=== PATIENT | female | born 1960 | race African-American/Black ===

== ENCOUNTER 2017-07-21 09:50 | Inpatient (IN) | payer OTHER, MEDICAID ==
[~2017-07-21] VITALS: Ht 167.6 cm; Wt 93.9 kg
[2017-07-21] MEDS ORDERED: FLUT1DIS2 IH (10:03)
[2017-07-21] MEDS ORDERED: BENA40TA3 PO (10:03)
[2017-07-21] MEDS ORDERED: IBUP-2030 PO (10:03)
[2017-07-21] MEDS ORDERED: TYLENOL #3 (10:03)
[2017-07-21] MEDS ORDERED: PROSOL IH (10:03)
[2017-07-21] MEDS ORDERED: IPRATROPIUM BROMIDE (0.02%) 0.5MG/2.5ML NEB HHN STA (10:27)
[2017-07-21] MEDS ORDERED: ALBUTEROL (0.083%) 2.5MG/3ML NEB HHN STA (10:27)
[2017-07-21] MEDS ORDERED: METHYLPREDNISOLONE SOD SUCC 125 MG/2 ML VIAL IV STA (10:27)
[2017-07-21] MEDS ORDERED: CEFTRIAXONE 2 G PREMIX 50 ML IV ONE (10:30)
[2017-07-21] MEDS ORDERED: AZITHROMYCIN 500 MG in DEXT 5% WATER 250 ML IV SCH (10:30)
[2017-07-21 10:49] LABS: BASOPHILS % 1.6 % (0.0-2.0); EOSINOPHILS % 3.4 % (0.0-5.0); HEMATOCRIT. 44.8 % (36.0-48.0); HEMOGLOBIN. 15.2 g/dL (12.0-16.0); LYMPHOCYTES % 24.2 % (20.0-50.0); MEAN CORPUSCULAR HEMOGLOBIN 35.7 pg (28.0-32.0); MEAN CORPUSCULAR VOLUME 105.5 fL (81.0-99.0); MEAN PLATELET VOLUME 8.3 fl (7.4-10.4); MONOCYTES % 12.3 % (2.0-8.0); NEUTROPHILS % 58.5 % (40.0-76.0); PLATELET 151 x1000/uL (130-400); RED BLOOD CELL COUNT 4.25 mill/uL (4.2-5.4); RED CELL DISTRIBUTION WIDTH 12.4 % (11.6-14.6)
[2017-07-21 11:06] LABS: CARBON DIOXIDE 30 mEq/L (21-32); CHLORIDE 106 mEq/L (98-107); TROPONIN I < 0.02 ng/mL (0.00-0.04)
[2017-07-21] MEDS ORDERED: TRAMADOL 50MG TABLET PO PRN (14:45)
[2017-07-21] MEDS ORDERED: DIPHENHYDRAMINE 50MG/ML VIAL IV PRN (14:45)
[2017-07-21] MEDS ORDERED: GUAIFENESIN 200MG/10ML SUGAR FREE UDC PO PRN (14:45)
[2017-07-21] MEDS ORDERED: ACETAMINOPHEN 325MG TABLET PO PRN (14:45)
[2017-07-21] MEDS ORDERED: MAGNESIUM/ALUMINUM HYDROXIDE/SIMETHICONE 30ML UDC PO PRN (14:45)
[2017-07-21] MEDS ORDERED: NA PHOS,M-B/NA PHOS,DI-BA ENEMA 118ML PR PRN (14:45)
[2017-07-21] MEDS ORDERED: LORAZEPAM 2MG/ML CPJ IV PRN (14:45)
[2017-07-21] MEDS ORDERED: CLONIDINE 0.1MG TABLET PO PRN (14:45)
[2017-07-21] MEDS ORDERED: DOCUSATE SODIUM 100MG CAPSULE PO PRN (14:45)
[2017-07-21] MEDS ORDERED: IPRATROPIUM/ALBUTEROL 0.5-3(2.5)MG/3ML NEB INH PRN (14:45)
[2017-07-21] MEDS ORDERED: ONDANSETRON HCL 4MG/2ML VIAL IV PRN (14:45)
[2017-07-21 15:10] VITALS: BP 169/77
[2017-07-21 15:11] VITALS: BP 169/77
[2017-07-21] MEDS ORDERED: LEVOFLOXACIN 500MG PREMIX 100 ML IV SCH (16:00)
[2017-07-21 18:07] LABS: FOLIC ACID (FOLATE) SERUM 15.6 ng/mL (>5.38)
[2017-07-21] MEDS: BENAZEPRIL 20MG TABLET PO SCH (18:23)
[2017-07-21] MEDS: GUAIFENESIN/DM 600MG/30MG ER TAB 12HR PO SCH (18:23)
[2017-07-21] MEDS: ENOXAPARIN 30MG/0.3ML SYR SUBCUT SCH (18:23)
[2017-07-21] MEDS: IPRATROPIUM/ALBUTEROL 0.5-3(2.5)MG/3ML NEB HHN SCH (19:30)
[2017-07-21 20:00] VITALS: BP 173/69
[2017-07-21] MEDS ORDERED: ZOLPIDEM TARTRATE 5MG TABLET PO PRN (21:00)
[2017-07-21 21:21] LABS: *AMPHETAMINES SCREEN URINE NEGATIVE (NEGATIVE); *BARBITURATES SCREEN URINE NEGATIVE (NEGATIVE); *BENZODIAZEPINES SCREEN URINE NEGATIVE (NEGATIVE); *COCAINE SCREEN URINE NEGATIVE (NEGATIVE); CANNABINOID URINE SCREEN NEGATIVE (NEGATIVE); METHADONE URINE SCREEN NEGATIVE (NEGATIVE); OPIATES URINE SCREEN NEGATIVE (NEGATIVE); PHENCYCLIDINE URINE SCREEN NEGATIVE (NEGATIVE)
[2017-07-21] MEDS: FAMOTIDINE 20MG/2ML VIAL IV SCH (21:34)
[2017-07-21] MEDS: METHYLPREDNISOLONE SOD SUCC 125 MG/2 ML VIAL IV SCH (22:00)
[2017-07-21] MEDS: NICOTINE 14MG PATCH TD SCH (23:49)
[2017-07-22] VITALS: BP 161/85
[2017-07-22] MEDS: IPRATROPIUM/ALBUTEROL 0.5-3(2.5)MG/3ML NEB HHN SCH ×5 (00:44→19:55)
[2017-07-22] MEDS: GUAIFENESIN/DM 600MG/30MG ER TAB 12HR PO SCH ×2 (03:05→13:45)
[2017-07-22 04:00] VITALS: BP 152/73
[2017-07-22] MEDS: ENOXAPARIN 30MG/0.3ML SYR SUBCUT SCH ×2 (05:10→15:40)
[2017-07-22] MEDS: METHYLPREDNISOLONE SOD SUCC 125 MG/2 ML VIAL IV SCH ×3 (06:21→21:45)
[2017-07-22 07:45] LABS: CREATINE KINASE 116 IU/L (26-192); CREATINE KINASE MB FRACTION 2.3 ng/mL (0.5-3.6); TROPONIN I < 0.02 ng/mL (0.00-0.04)
[2017-07-22 08:00] VITALS: BP 167/71
[2017-07-22] MEDS: FAMOTIDINE 20MG/2ML VIAL IV SCH ×2 (09:00→21:46)
[2017-07-22] MEDS: ASPIRIN 325MG EC TABLET PO SCH (09:00)
[2017-07-22] MEDS: BENAZEPRIL 20MG TABLET PO SCH (09:01)
[2017-07-22] MEDS: NICOTINE 14MG PATCH TD SCH (10:54)
[2017-07-22 12:12] VITALS: BP 180/93
[2017-07-22] MEDS ORDERED: LEVOFLOXACIN 500MG PREMIX 100 ML IV SCH (16:00)
[2017-07-22 16:18] VITALS: BP 159/74
[2017-07-22 17:55] LABS: CREATINE KINASE 142 IU/L (26-192); CREATINE KINASE MB FRACTION 2.2 ng/mL (0.5-3.6); TROPONIN I < 0.02 ng/mL (0.00-0.04)
[2017-07-22 20:00] VITALS: BP 153/80
[2017-07-23] VITALS: BP 159/78
[2017-07-23] MEDS: IPRATROPIUM/ALBUTEROL 0.5-3(2.5)MG/3ML NEB HHN SCH ×4 (00:58→11:53)
[2017-07-23] MEDS: ENOXAPARIN 30MG/0.3ML SYR SUBCUT SCH (03:36)
[2017-07-23] MEDS: GUAIFENESIN/DM 600MG/30MG ER TAB 12HR PO SCH (03:36)
[2017-07-23 04:00] VITALS: BP 173/85
[2017-07-23] MEDS: METHYLPREDNISOLONE SOD SUCC 125 MG/2 ML VIAL IV SCH (06:00)
[2017-07-23 08:00] VITALS: BP 168/75
[2017-07-23] MEDS: FAMOTIDINE 20MG/2ML VIAL IV SCH (08:58)
[2017-07-23] MEDS: ASPIRIN 325MG EC TABLET PO SCH (08:58)
[2017-07-23] MEDS: BENAZEPRIL 20MG TABLET PO SCH (08:59)
[2017-07-23] MEDS: NICOTINE 14MG PATCH TD SCH (09:01)
[2017-07-23 12:00] VITALS: BP 167/77
[2017-07-23 13:30] VITALS: BP 167/77
== END 2017-07-23 13:33 | disposition home or self-care (01) | DRG 191 ==
LOC: ER 12:27 → 5WST 14:01 → ENRESERV 14:01 → SUPCPDRO 14:31
PROVIDERS: ADMIT Internal Medicine; ATTEND Internal Medicine
DX: J44.1 Chronic obstructive pulmonary disease with (acute) exacerbation (principal); J98.11 Atelectasis; I10 Essential (primary) hypertension; R07.81 Pleurodynia; R07.89 Other chest pain; F17.210 Nicotine dependence, cigarettes, uncomplicated; N95.1 Menopausal and female climacteric states; M19.90 Unspecified osteoarthritis, unspecified site; Z79.51 Long term (current) use of inhaled steroids; Z79.899 Other long term (current) drug therapy
CPT/HCPCS: 36415; 71010; 80053; 80061; 80305; 82550; 82553; 82607; 82746; 83036; 83605; 83690; 83880; 84484; 85025; 87040; 93005; 93970; 94640; 96361; 96365; 96366; 96375; 99285; J0456; J0696; J1650; J1956; J2930; J3490; J7050; J7060; J7611; J7620

== ENCOUNTER 2017-07-24 01:39 | Inpatient (IN) | payer OTHER, MEDICAID ==
[2017-07-24] VITALS (9 sets, daily range): BP systolic 102–143; BP diastolic 57–72
[~2017-07-24] VITALS: Ht 167.6 cm; Wt 101.6 kg
[~2017-07-24 01:39] MED LIST: BENA40TA3 PO; FLUT1DIS2 IH; IBUP-2030 PO; PROSOL IH; TYLENOL #3
[2017-07-24] MEDS ORDERED: LEVOFLOXACIN 750MG PREMIX 150 ML IV STA (01:43)
[2017-07-24] MEDS ORDERED: IPRATROPIUM BROMIDE (0.02%) 0.5MG/2.5ML NEB HHN STA (01:43)
[2017-07-24] MEDS ORDERED: ALBUTEROL (0.083%) 2.5MG/3ML NEB HHN STA (01:43)
[2017-07-24] MEDS ORDERED: ASPIRIN 81MG TABLET PO ONE (01:45)
[2017-07-24] MEDS ORDERED: NITROGLYCERIN OINT 1GM/INCH UDPKT TD ONE (01:45)
[2017-07-24] MEDS ORDERED: MAGNESIUM 2 G PREMIX 50 ML IV ONE (01:45)
[2017-07-24 02:18] LABS: BASOPHILS % 0.3 % (0.0-2.0); HEMATOCRIT. 46.4 % (36.0-48.0); HEMOGLOBIN. 15.6 g/dL (12.0-16.0); LYMPHOCYTES % 20.4 % (20.0-50.0); MEAN CORPUSCULAR VOLUME 106.8 fL (81.0-99.0); MEAN PLATELET VOLUME 8.5 fl (7.4-10.4); MONOCYTES % 8.4 % (2.0-8.0); NEUTROPHILS % 70.9 % (40.0-76.0); PLATELET 168 x1000/uL (130-400); RED BLOOD CELL COUNT 4.35 mill/uL (4.2-5.4); RED CELL DISTRIBUTION WIDTH 12.6 % (11.6-14.6)
[2017-07-24 02:25] LABS: D-DIMER 0.38 mg/L FEU (<0.50); INR 1.1; PARTIAL THROMBOPLASTIN TIME 22.9 sec (23.4-31.0); PROTHROMBIN TIME 11.2 sec (9.4-11.6)
[2017-07-24 02:37] LABS: BG BASE EXCESS 0.3 mmol/L (-2.0-2.0); BG BILEVEL POS AIRWAY PRESSURE 15/5; BG CARBOXYHEMOGLOBIN 0.6 % (0.5-1.5); BG DEOXYHEMOGLOBIN 1.3 % (0.0-5.0); BG FRACTION INSPIRED OXYGEN 40; BG HCO3 ACT 27.3 mmol/L (22.0-26.0); BG METHEMOGLOBIN 0.3 % (0.0-1.5); BG OXYGEN SATURATION 98.7 % (92.0-98.5); BG OXYHEMOGLOBIN 97.8 % (94.0-97.0); BG PCO2 53.1 mmHg (35.0-45.0); BG PH 7.329 (7.350-7.450); BG PO2 148.1 mmHg (75.0-100.0); BG SAMPLE SITE RIGHT BRACHIAL; BG VENT MODE MASK - BIPAP
[2017-07-24 02:38] LABS: CARBON DIOXIDE 28 mEq/L (21-32); CHLORIDE 104 mEq/L (98-107); ETHANOL BLOOD < 10 mg/dL; TROPONIN I 0.08 ng/mL (0.00-0.04)
[2017-07-24] MEDS ORDERED: MORPHINE SULFATE 2 MG/ML CPJ (NOT FOR IM USE) IV PRN (09:45)
[2017-07-24] MEDS ORDERED: IPRATROPIUM/ALBUTEROL 0.5-3(2.5)MG/3ML NEB HHN PRN ×2 (09:45→10:15)
[2017-07-24] MEDS: METHYLPREDNISOLONE SOD SUCC 40 MG/ML VIAL IV SCH ×2 (12:23→17:38)
[2017-07-24] MEDS: IPRATROPIUM/ALBUTEROL 0.5-3(2.5)MG/3ML NEB HHN SCH ×3 (14:00→20:43)
[2017-07-25] VITALS (12 sets, daily range): BP systolic 113–177; BP diastolic 50–129
[2017-07-25] MEDS: IPRATROPIUM/ALBUTEROL 0.5-3(2.5)MG/3ML NEB HHN SCH ×6 (01:09→21:22)
[2017-07-25] MEDS: METHYLPREDNISOLONE SOD SUCC 40 MG/ML VIAL IV SCH ×3 (01:13→17:11)
[2017-07-25] MEDS: LEVOFLOXACIN 500MG PREMIX 100 ML IV SCH (02:39)
[2017-07-25] MEDS ORDERED: ACETAMINOPHEN 325MG TABLET PO PRN (13:15)
[2017-07-25] MEDS ORDERED: CLONIDINE 0.1MG TABLET PO PRN (13:30)
[2017-07-25] MEDS: AMLODIPINE 10MG TABLET PO SCH ×2 (13:30→14:23)
[2017-07-25] MEDS ORDERED: GUAIFENESIN/CODEINE 100-10MG/5ML UDC PO PRN (13:45)
[2017-07-25] MEDS: NICOTINE 14MG PATCH TD SCH (14:22)
[2017-07-25] MEDS: ASPIRIN 81MG TABLET PO SCH (14:23)
[2017-07-25] MEDS: MULTIVITAMINS,THER W-MINERALS TABLET PO SCH (16:08)
[2017-07-25] MEDS: THIAMINE HCL 100MG TABLET PO SCH (16:08)
[2017-07-25] MEDS: FOLIC ACID 1MG TABLET PO SCH (16:08)
[2017-07-25] MEDS: GUAIFENESIN 600MG ER TABLET PO SCH (20:46)
[2017-07-25] MEDS: BUDESONIDE 0.5MG/2ML NEB HHN SCH (21:21)
[2017-07-26] VITALS: BP 147/83
[2017-07-26 00:24] LABS: CREATINE KINASE MB FRACTION 1.7 ng/mL (0.5-3.6); TROPONIN I 0.3 ng/mL (0.00-0.04)
[2017-07-26] MEDS: IPRATROPIUM/ALBUTEROL 0.5-3(2.5)MG/3ML NEB HHN SCH ×6 (01:12→20:09)
[2017-07-26 02:00] VITALS: BP 153/86
[2017-07-26] MEDS: LEVOFLOXACIN 500MG PREMIX 100 ML IV SCH (02:21)
[2017-07-26] MEDS: METHYLPREDNISOLONE SOD SUCC 40 MG/ML VIAL IV SCH ×2 (02:21→09:00)
[2017-07-26 06:26] LABS: HEMATOCRIT 41.6 % (36.0-48.0); HEMOGLOBIN 13.8 g/dL (12.0-16.0); MEAN CORPUSCULAR HEMOGLOBIN 35.1 pg (28.0-32.0); MEAN CORPUSCULAR VOLUME 105.8 fL (81.0-99.0); PLATELET 183 x1000/uL (130-400); RED BLOOD CELL COUNT 3.93 mill/uL (4.2-5.4); RED CELL DISTRIBUTION WIDTH 11.9 % (11.6-14.6)
[2017-07-26 07:03] LABS: CARBON DIOXIDE 29 mEq/L (21-32); CHLORIDE 102 mEq/L (98-107); CREATINE KINASE 41 IU/L (26-192); CREATINE KINASE MB FRACTION 1.8 ng/mL (0.5-3.6); TROPONIN I 0.22 ng/mL (0.00-0.04)
[2017-07-26 08:00] VITALS: BP 150/85
[2017-07-26] MEDS: MULTIVITAMINS,THER W-MINERALS TABLET PO SCH (09:00)
[2017-07-26] MEDS: AMLODIPINE 10MG TABLET PO SCH (09:00)
[2017-07-26] MEDS: THIAMINE HCL 100MG TABLET PO SCH (09:00)
[2017-07-26] MEDS: FOLIC ACID 1MG TABLET PO SCH (09:00)
[2017-07-26] MEDS ORDERED: PNEUMOCOCCAL 23-VAL P-SAC VAC 0.5 ML IM ONE (09:00)
[2017-07-26] MEDS: ASPIRIN 81MG TABLET PO SCH (09:01)
[2017-07-26] MEDS: GUAIFENESIN 600MG ER TABLET PO SCH ×2 (09:01→21:12)
[2017-07-26] MEDS: NICOTINE 14MG PATCH TD SCH (09:02)
[2017-07-26] MEDS ORDERED: DOBUTAMINE 250MG PREMIX 250 ML IV ONE ×2 (09:15→11:42)
[2017-07-26] MEDS: BUDESONIDE 0.5MG/2ML NEB HHN SCH ×2 (09:45→20:09)
[2017-07-26 09:47] VITALS: BP 155/80
[2017-07-26] MEDS ORDERED: MORPHINE SULFATE 4 MG/ML CPJ (NOT FOR IM USE) IV PRN (15:30)
[2017-07-26 15:53] LABS: CREATINE KINASE MB FRACTION 1.7 ng/mL (0.5-3.6); TROPONIN I 0.18 ng/mL (0.00-0.04)
[2017-07-26 16:00] VITALS: BP 153/69
[2017-07-26] MEDS: PREDNISONE 20MG TABLET PO SCH (17:49)
[2017-07-26 20:00] VITALS: BP 153/78
[2017-07-27] VITALS: BP 161/68
[2017-07-27] MEDS: IPRATROPIUM/ALBUTEROL 0.5-3(2.5)MG/3ML NEB HHN SCH ×3 (00:11→09:39)
[2017-07-27] MEDS: LEVOFLOXACIN 500MG PREMIX 100 ML IV SCH (03:10)
[2017-07-27 04:00] VITALS: BP 145/73
[2017-07-27 08:00] VITALS: BP 138/81
[2017-07-27] MEDS: NICOTINE 14MG PATCH TD SCH (08:43)
[2017-07-27] MEDS: FOLIC ACID 1MG TABLET PO SCH (08:44)
[2017-07-27] MEDS: GUAIFENESIN 600MG ER TABLET PO SCH (08:44)
[2017-07-27] MEDS: THIAMINE HCL 100MG TABLET PO SCH (08:44)
[2017-07-27] MEDS: MULTIVITAMINS,THER W-MINERALS TABLET PO SCH (08:44)
[2017-07-27] MEDS: ASPIRIN 81MG TABLET PO SCH (08:44)
[2017-07-27] MEDS: AMLODIPINE 10MG TABLET PO SCH (08:44)
[2017-07-27] MEDS: PREDNISONE 20MG TABLET PO SCH (08:44)
[2017-07-27] MEDS: BUDESONIDE 0.5MG/2ML NEB HHN SCH (09:39)
[2017-07-27 12:00] VITALS: BP 150/71
[2017-07-27 13:17] VITALS: BP 150/71
[2017-07-28] MEDS ORDERED: LEVOFLOXACIN 500MG TABLET PO SCH (11:00)
== END 2017-07-27 14:00 | disposition home or self-care (01) | DRG 189 ==
LOC: ER 01:39 → 5EST 04:37 → ENRESERV 06:59 → 5EST 10:00 → UNDOADMIN 10:00 → 5EST 10:14
PROVIDERS: ADMIT Internal Medicine; ATTEND Internal Medicine
DX: J96.00 Acute respiratory failure, unspecified whether with hypoxia or hypercapnia (principal); J44.0 Chronic obstructive pulmonary disease with (acute) lower respiratory infection; I24.9 Acute ischemic heart disease, unspecified; J44.1 Chronic obstructive pulmonary disease with (acute) exacerbation; J20.9 Acute bronchitis, unspecified; F10.10 Alcohol abuse, uncomplicated; F17.210 Nicotine dependence, cigarettes, uncomplicated; H40.9 Unspecified glaucoma; I10 Essential (primary) hypertension; K59.00 Constipation, unspecified; K64.9 Unspecified hemorrhoids; M19.90 Unspecified osteoarthritis, unspecified site; J32.9 Chronic sinusitis, unspecified
CPT/HCPCS: 36415; 36600; 71010; 78452; 80048; 80053; 82375; 82550; 82553; 82805; 83605; 83880; 84484; 85025; 85027; 85379; 85610; 85730; 87040; 87070; 93005; 93017; 93306; 94640; 94660; 94664; 96365; 96366; 99285; A9500; G0482; J1250; J1956; J2920; J3475; J7050; J7512; J7611; J7620; J7626

== ENCOUNTER 2019-03-05 17:58 | Emergency (ER) | payer OTHER, MEDICAID ==
[~2019-03-05] VITALS: Ht 162.6 cm; Wt 82.0 kg
[~2019-03-05 17:58] MED LIST changes: -BENA40TA3 PO; +BENA40TA9 PO; -TYLENOL #3
[2019-03-05] MEDS ORDERED: ONDANSETRON HCL 4MG/2ML INJ IV STA (19:08)
[2019-03-05] MEDS ORDERED: ALBUTEROL (0.083%) 2.5MG/3ML NEB HHN STA (19:08)
[2019-03-05] MEDS ORDERED: SODIUM CHLORIDE 0.9% 1,000 ML IV ONE (19:08)
[2019-03-05] MEDS ORDERED: KETOROLAC 30MG/ML VIAL IV STA (19:08)
[2019-03-05] MEDS ORDERED: IPRATROPIUM BROMIDE (0.02%) 0.5MG/2.5ML NEB HHN STA (19:08)
[2019-03-05 19:33] LABS: BASOPHILS % 1.1 % (0.0-2.0); EOSINOPHILS % 0.9 % (0.0-5.0); HEMATOCRIT. 38.7 % (36.0-48.0); HEMOGLOBIN. 12.9 g/dL (12.0-16.0); LYMPHOCYTES % 29.6 % (20.0-50.0); MEAN CORPUSCULAR HEMOGLOBIN 36.3 pg (28.0-32.0); MEAN CORPUSCULAR VOLUME 109.1 fL (81.0-99.0); MEAN PLATELET VOLUME 8.1 fl (7.4-10.4); MONOCYTES % 7.3 % (2.0-8.0); NEUTROPHILS % 61.1 % (40.0-76.0); PLATELET 174 x1000/uL (130-400); RED BLOOD CELL COUNT 3.54 mill/uL (4.2-5.4); RED CELL DISTRIBUTION WIDTH 12.3 % (11.6-14.6)
[2019-03-05 19:40] LABS: CHLORIDE 95 mEq/L (98-107)
[2019-03-05 22:06] VITALS: BP 105/35
== END 2019-03-05 22:48 | disposition home or self-care (01) ==
LOC: ER 17:58
DX: J44.1 Chronic obstructive pulmonary disease with (acute) exacerbation (principal); R19.7 Diarrhea, unspecified; Z87.891 Personal history of nicotine dependence; F14.10 Cocaine abuse, uncomplicated
CPT/HCPCS: 36415; 71045; 80053; 82962; 83690; 83880; 84484; 85025; 93005; 94640; 96361; 96374; 96375; 99284; J1885; J2405; J7030; J7611

== ENCOUNTER 2021-07-25 06:11 | Inpatient (IN) | payer OTHER, MEDICAID ==
[2021-07-25] VITALS (28 sets, daily range): BP systolic 83–127; BP diastolic 40–65
[~2021-07-25] VITALS: Ht 165.1 cm; Wt 87.1 kg
[2021-07-25 07:30] LABS: HEMATOCRIT. 29.9 % (36.0-48.0); HEMOGLOBIN. 10.2 g/dL (12.0-16.0); MEAN CORPUSCULAR VOLUME 110.9 fL (81.0-99.0); MEAN PLATELET VOLUME 8.2 fl (7.4-10.4); PLATELET 363 x1000/uL (130-400); RED CELL DISTRIBUTION WIDTH 13.1 % (11.6-14.6)
[2021-07-25 07:42] LABS: INR 1.7; PROTHROMBIN TIME 17.1 sec (9.6-11.0)
[2021-07-25 07:52] LABS: CHLORIDE 101 mEq/L (98-107)
[2021-07-25] MEDS ORDERED: ALBUTEROL (0.083%) 2.5MG/3ML NEB HHN ONE (08:00)
[2021-07-25] MEDS ORDERED: DEXTROSE 50% WATER 50ML SYRINGE IV ONE (08:00)
[2021-07-25] MEDS ORDERED: CALCIUM CHLORIDE 1GM/10ML SYR IV ONE (08:00)
[2021-07-25] MEDS ORDERED: INSULIN REGULAR (HUMULIN R) 300UNITS/3ML VIAL IV ONE (08:00)
[2021-07-25] MEDS ORDERED: MORPHINE SULFATE 4 MG/ML CPJ (NOT FOR IM USE) IV ONE (08:00)
[2021-07-25] MEDS ORDERED: SODIUM BICARBONATE 8.4% 1 MEQ/ML 50ML SYR IV ONE (08:00)
[2021-07-25 08:05] LABS: PLATELET ESTIMATE NORMAL
[2021-07-25] MEDS ORDERED: LIDOCAINE HCL 1% 20ML VIAL (Pyxis) INJ ONE (09:53)
[2021-07-25] MEDS ORDERED: SODIUM BICARBONATE 4% (2.4MEQ) 5ML VIAL IV ONE (09:53)
[2021-07-25] MEDS ORDERED: MORPHINE SULFATE 2 MG/ML CPJ (NOT FOR IM USE) IV PRN (11:00)
[2021-07-25] MEDS ORDERED: ONDANSETRON HCL 4MG/2ML INJ IV PRN (11:00)
[2021-07-25] MEDS ORDERED: VANCOMYCIN 2,000 MG in DEXT 5% WATER 500 ML IV NR (11:15)
[2021-07-25] MEDS ORDERED: SODIUM BICARBONATE 8.4% 1 MEQ/ML 50ML SYR IV NR (11:30)
[2021-07-25] MEDS ORDERED: ALBUMIN HUMAN 25GM/100ML (25%) IV NR (11:30)
[2021-07-25 12:32] LABS: BG BASE EXCESS -8.2 mmol/L (-2.0-2.0); BG DEOXYHEMOGLOBIN 8.4 % (0.0-5.0); BG FRACTION INSPIRED OXYGEN 21; BG METHEMOGLOBIN 0.3 % (0.0-1.5); BG OXYGEN SATURATION 91.6 % (92.0-98.5); BG OXYHEMOGLOBIN 91.3 % (94.0-97.0); BG PCO2 33.7 mmHg (35.0-45.0); BG PH 7.321 (7.350-7.450); BG PO2 70.5 mmHg (75.0-100.0); BG SAMPLE SITE RIGHT BRACHIAL; BG TOTAL HEMOGLOBIN 10.6 g/dL (12.0-18.0); BG VENT MODE ROOM AIR
[2021-07-25] MEDS: CEFEPIME 1,000 MG in DEXTROSE 5% WATER 50 ML IV SCH (12:52)
[2021-07-25] MEDS: SODIUM CHLORIDE 0.9% 1,000 ML IV SCH ×2 (12:53→18:09)
[2021-07-25] MEDS ORDERED: MIDAZOLAM HCL 100 MG in SODIUM CHLORIDE 0.9% 80 ML IV ONE (13:30)
[2021-07-25] MEDS ORDERED: ETOMIDATE 2MG/ML 10ML VIAL IV ONE (13:30)
[2021-07-25] MEDS ORDERED: VECURONIUM BROMIDE 10 MG/VIAL IV ONE (13:30)
[2021-07-25] MEDS ORDERED: MIDAZOLAM HCL 100 MG in DEXT 5% WATER 80 ML IV ONE (13:30)
[2021-07-25] MEDS ORDERED: IPRATROPIUM/ALBUTEROL 0.5-3(2.5)MG/3ML NEB HHN PRN (14:00)
[2021-07-25] MEDS ORDERED: FENTANYL CITRATE/PF 1,000 MCG in SODIUM CHLORIDE 0.9% 80 ML IV PRN (14:00)
[2021-07-25] MEDS ORDERED: NOREPINEPHRINE 32 MG in DEXT 5% WATER 218 ML IV PRN (14:00)
[2021-07-25 14:45] LABS: BG BASE EXCESS -1.1 mmol/L (-2.0-2.0); BG CARBOXYHEMOGLOBIN 0.3 % (0.5-1.5); BG DEOXYHEMOGLOBIN 0.4 % (0.0-5.0); BG FRACTION INSPIRED OXYGEN 100; BG HCO3 ACT 22.7 mmol/L (22.0-26.0); BG METHEMOGLOBIN 0.5 % (0.0-1.5); BG OXYGEN SATURATION 99.6 % (92.0-98.5); BG OXYHEMOGLOBIN 98.8 % (94.0-97.0); BG PCO2 34.9 mmHg (35.0-45.0); BG PH 7.432 (7.350-7.450); BG PO2 388.6 mmHg (75.0-100.0); BG SAMPLE SITE LEFT BRACHIAL; BG TOTAL HEMOGLOBIN 10.4 g/dL (12.0-18.0); BG VENT MODE VENT - AC
[2021-07-25] MEDS: PROPOFOL 10MG/ML 100ML 100 ML IV PRN (18:09)
[2021-07-25 19:31] LABS: CLARITY URINE TURBID (CLEAR); COLOR URINE ORANGE (YELLOW); KETONES URINE NEGATIVE (NEGATIVE); LEUKOCYTE ESTERASE URINE 1+ (NEGATIVE); NITRITE URINE POSITIVE (NEGATIVE); OCCULT BLOOD URINE 2+ (NEGATIVE); PROTEIN URINE 2+ (NEGATIVE); SPECIFIC GRAVITY URINE 1.028 (1.005-1.030)
[2021-07-25] MEDS: FENTANYL CITRATE 2,500 MCG in SODIUM CHLORIDE 0.9% 200 ML IV PRN (19:45)
[2021-07-25 19:57] LABS: *BENZODIAZEPINES SCREEN URINE NEGATIVE (NEGATIVE)
[2021-07-25 19:58] LABS: *AMPHETAMINES SCREEN URINE NEGATIVE (NEGATIVE); *BARBITURATES SCREEN URINE NEGATIVE (NEGATIVE); *COCAINE SCREEN URINE NEGATIVE (NEGATIVE); CANNABINOID URINE SCREEN NEGATIVE (NEGATIVE); METHADONE URINE SCREEN NEGATIVE (NEGATIVE); OPIATES URINE SCREEN PRESUMTIVE POSITIVE (NEGATIVE); PHENCYCLIDINE URINE SCREEN NEGATIVE (NEGATIVE)
[2021-07-25] MEDS: NOREPINEPHRINE 32 MG in DEXT 5% WATER 218 ML IV PRN (20:03)
[2021-07-25] MEDS: IPRATROPIUM/ALBUTEROL 0.5-3(2.5)MG/3ML NEB HHN SCH (20:46)
[2021-07-26] VITALS (97 sets, daily range): BP systolic 55–142; BP diastolic 29–99
[2021-07-26] MEDS: IPRATROPIUM/ALBUTEROL 0.5-3(2.5)MG/3ML NEB HHN SCH ×4 (00:41→20:38)
[2021-07-26] MEDS ORDERED: LIDOCAINE HCL 2% 5ML SYRINGE IV ONE (03:30)
[2021-07-26] MEDS: SODIUM CHLORIDE 0.9% 1,000 ML IV SCH ×2 (05:48→20:00)
[2021-07-26 06:14] LABS: CHLORIDE 105 mEq/L (98-107)
[2021-07-26 06:18] LABS: BASOPHILS % 0.3 % (0.0-2.0); EOSINOPHILS % 0.1 % (0.0-5.0); HEMATOCRIT. 28.5 % (36.0-48.0); HEMOGLOBIN. 9.9 g/dL (12.0-16.0); LYMPHOCYTES % 7.9 % (20.0-50.0); MEAN CORPUSCULAR HEMOGLOBIN 37.8 pg (28.0-32.0); MEAN CORPUSCULAR VOLUME 108.9 fL (81.0-99.0); MONOCYTES % 7.8 % (2.0-8.0); NEUTROPHILS % 83.9 % (40.0-76.0); RED BLOOD CELL COUNT 2.61 mill/uL (4.2-5.4); RED CELL DISTRIBUTION WIDTH 13.3 % (11.6-14.6)
[2021-07-26 06:24] LABS: PHOSPHORUS 5.8 mg/dL (2.5-4.9)
[2021-07-26 07:06] LABS: HEPATITIS B SURFACE ANTIGEN NEGATIVE
[2021-07-26 08:37] LABS: BG BASE EXCESS 4.1 mmol/L (-2.0-2.0); BG CARBOXYHEMOGLOBIN 0.3 % (0.5-1.5); BG DEOXYHEMOGLOBIN 3.6 % (0.0-5.0); BG FRACTION INSPIRED OXYGEN 40; BG HCO3 ACT 27.7 mmol/L (22.0-26.0); BG METHEMOGLOBIN 0.4 % (0.0-1.5); BG OXYGEN SATURATION 96.4 % (92.0-98.5); BG OXYHEMOGLOBIN 95.7 % (94.0-97.0); BG PCO2 37.8 mmHg (35.0-45.0); BG PH 7.483 (7.350-7.450); BG PO2 89.6 mmHg (75.0-100.0); BG SAMPLE SITE RIGHT RADIAL; BG TOTAL HEMOGLOBIN 10.9 g/dL (12.0-18.0); BG VENT MODE VENT - AC
[2021-07-26] MEDS: PANTOPRAZOLE SODIUM 40 MG/VIAL IV SCH (08:37)
[2021-07-26] MEDS ORDERED: PROPOFOL 10MG/ML 100ML 100 ML IV PRN (11:15)
[2021-07-26] MEDS: PROPOFOL 10MG/ML 100ML 100 ML IV PRN (11:42)
[2021-07-26] MEDS: CEFEPIME 1,000 MG in DEXTROSE 5% WATER 50 ML IV SCH (15:27)
[2021-07-26] MEDS: NOREPINEPHRINE 32 MG in DEXT 5% WATER 218 ML IV PRN (16:15)
[2021-07-26] MEDS ORDERED: SORBITOL 70% SOLN 30ML PO NR (18:30)
[2021-07-27] VITALS (91 sets, daily range): BP systolic 80–168; BP diastolic 39–85
[2021-07-27] MEDS: IPRATROPIUM/ALBUTEROL 0.5-3(2.5)MG/3ML NEB HHN SCH ×4 (00:59→20:31)
[2021-07-27] MEDS: PROPOFOL 10MG/ML 100ML 100 ML IV PRN (01:22)
[2021-07-27] MEDS: FENTANYL CITRATE 2,500 MCG in SODIUM CHLORIDE 0.9% 200 ML IV PRN (04:25)
[2021-07-27 06:09] LABS: CHLORIDE 107 mEq/L (98-107)
[2021-07-27 06:18] LABS: BASOPHILS % 0.4 % (0.0-2.0); EOSINOPHILS % 0.2 % (0.0-5.0); HEMATOCRIT. 26.3 % (36.0-48.0); HEMOGLOBIN. 9.1 g/dL (12.0-16.0); LYMPHOCYTES % 10.2 % (20.0-50.0); MEAN CORPUSCULAR HEMOGLOBIN 38.1 pg (28.0-32.0); MEAN CORPUSCULAR VOLUME 110.2 fL (81.0-99.0); MEAN PLATELET VOLUME 8.4 fl (7.4-10.4); MONOCYTES % 9.2 % (2.0-8.0); PLATELET 243 x1000/uL (130-400); RED BLOOD CELL COUNT 2.39 mill/uL (4.2-5.4); RED CELL DISTRIBUTION WIDTH 13.7 % (11.6-14.6)
[2021-07-27] MEDS: PANTOPRAZOLE SODIUM 40 MG/VIAL IV SCH (08:54)
[2021-07-27 09:16] LABS: BG BASE EXCESS 0.4 mmol/L (-2.0-2.0); BG CARBOXYHEMOGLOBIN 0.6 % (0.5-1.5); BG DEOXYHEMOGLOBIN 6.1 % (0.0-5.0); BG FRACTION INSPIRED OXYGEN 40; BG HCO3 ACT 24.8 mmol/L (22.0-26.0); BG METHEMOGLOBIN 0.3 % (0.0-1.5); BG OXYGEN SATURATION 93.8 % (92.0-98.5); BG PCO2 38.6 mmHg (35.0-45.0); BG PH 7.425 (7.350-7.450); BG PO2 75.1 mmHg (75.0-100.0); BG SAMPLE SITE RIGHT RADIAL; BG TOTAL HEMOGLOBIN 9.7 g/dL (12.0-18.0); BG TOTAL RESPIRATORY RATE 16 b/min; BG VENT MODE VENT - AC
[2021-07-27] MEDS: NOREPINEPHRINE 32 MG in DEXT 5% WATER 218 ML IV PRN ×2 (09:29→20:49)
[2021-07-27] MEDS ORDERED: VANCOMYCIN 1500MG in DEXTROSE 5% WATER 250ML IV NR (11:00)
[2021-07-27] MEDS ORDERED: DIATR MEGLU/DIATRIZOATE SOLN 30ML ONE (11:36)
[2021-07-27] MEDS ORDERED: DIATR MEGLU/DIATRIZOATE SOLN 120ML ONE (11:40)
[2021-07-27] MEDS ORDERED: PROPOFOL 10MG/ML 100ML 100 ML IV PRN (12:00)
[2021-07-27] MEDS: CEFEPIME 1,000 MG in DEXTROSE 5% WATER 50 ML IV SCH (14:30)
[2021-07-27] MEDS: SODIUM CHLORIDE 0.9% 1,000 ML IV SCH (16:58)
[2021-07-28] VITALS (95 sets, daily range): BP systolic 82–142; BP diastolic 39–73
[2021-07-28 05:54] LABS: BASOPHILS % 0.6 % (0.0-2.0); EOSINOPHILS % 0.4 % (0.0-5.0); HEMATOCRIT. 25.6 % (36.0-48.0); HEMOGLOBIN. 8.8 g/dL (12.0-16.0); LYMPHOCYTES % 7.3 % (20.0-50.0); MEAN CORPUSCULAR HEMOGLOBIN 38.1 pg (28.0-32.0); MEAN CORPUSCULAR VOLUME 110.7 fL (81.0-99.0); MEAN PLATELET VOLUME 8.5 fl (7.4-10.4); MONOCYTES % 7.5 % (2.0-8.0); NEUTROPHILS % 84.2 % (40.0-76.0); PLATELET 173 x1000/uL (130-400); RED BLOOD CELL COUNT 2.31 mill/uL (4.2-5.4); RED CELL DISTRIBUTION WIDTH 13.5 % (11.6-14.6)
[2021-07-28] MEDS: SODIUM CHLORIDE 0.9% 1,000 ML IV SCH (06:18)
[2021-07-28] MEDS: FENTANYL CITRATE 2,500 MCG in SODIUM CHLORIDE 0.9% 200 ML IV PRN (06:19)
[2021-07-28] MEDS: NOREPINEPHRINE 32 MG in DEXT 5% WATER 218 ML IV PRN ×2 (06:20→20:17)
[2021-07-28 06:21] LABS: PHOSPHORUS 4.3 mg/dL (2.5-4.9)
[2021-07-28] MEDS: IPRATROPIUM/ALBUTEROL 0.5-3(2.5)MG/3ML NEB HHN SCH ×3 (08:34→20:03)
[2021-07-28] MEDS: PANTOPRAZOLE SODIUM 40 MG/VIAL IV SCH (08:49)
[2021-07-28 11:54] LABS: BG CARBOXYHEMOGLOBIN 0.3 % (0.5-1.5); BG DEOXYHEMOGLOBIN 9.2 % (0.0-5.0); BG FRACTION INSPIRED OXYGEN 40; BG HCO3 ACT 28.3 mmol/L (22.0-26.0); BG METHEMOGLOBIN 0.3 % (0.0-1.5); BG OXYGEN SATURATION 90.7 % (92.0-98.5); BG OXYHEMOGLOBIN 90.2 % (94.0-97.0); BG PCO2 36.5 mmHg (35.0-45.0); BG PH 7.507 (7.350-7.450); BG PO2 60.8 mmHg (75.0-100.0); BG SAMPLE SITE RIGHT RADIAL; BG TOTAL RESPIRATORY RATE 17 b/min; BG VENT MODE VENT - AC
[2021-07-28] MEDS ORDERED: PROPOFOL 10MG/ML 100ML 100 ML IV PRN (12:45)
[2021-07-28] MEDS: CEFEPIME 1,000 MG in DEXTROSE 5% WATER 50 ML IV SCH (13:50)
[2021-07-28] MEDS ORDERED: DEXT 5%/0.9% NACL 1,000 ML IV SCH (15:00)
[2021-07-28] MEDS ORDERED: LACTULOSE 20G/30ML UDC PO PRN ×2 (18:00→18:30)
[2021-07-29] VITALS (105 sets, daily range): BP systolic 63–158; BP diastolic 40–127
[2021-07-29] MEDS: IPRATROPIUM/ALBUTEROL 0.5-3(2.5)MG/3ML NEB HHN SCH ×4 (01:45→20:02)
[2021-07-29] MEDS: FENTANYL CITRATE 2,500 MCG in SODIUM CHLORIDE 0.9% 200 ML IV PRN (06:37)
[2021-07-29 06:50] LABS: HEMATOCRIT. 25.5 % (36.0-48.0); HEMOGLOBIN. 8.8 g/dL (12.0-16.0); MEAN CORPUSCULAR HEMOGLOBIN 38.3 pg (28.0-32.0); MEAN CORPUSCULAR VOLUME 111.5 fL (81.0-99.0); MEAN PLATELET VOLUME 8.9 fl (7.4-10.4); PLATELET 140 x1000/uL (130-400); RED BLOOD CELL COUNT 2.29 mill/uL (4.2-5.4); RED CELL DISTRIBUTION WIDTH 13.6 % (11.6-14.6)
[2021-07-29] MEDS: PANTOPRAZOLE SODIUM 40 MG/VIAL IV SCH (08:43)
[2021-07-29 08:59] LABS: BG BASE EXCESS 5.3 mmol/L (-2.0-2.0); BG DEOXYHEMOGLOBIN 8.7 % (0.0-5.0); BG FRACTION INSPIRED OXYGEN 60; BG HCO3 ACT 29.2 mmol/L (22.0-26.0); BG METHEMOGLOBIN 0.4 % (0.0-1.5); BG OXYGEN SATURATION 91.3 % (92.0-98.5); BG OXYHEMOGLOBIN 90.9 % (94.0-97.0); BG PCO2 40.2 mmHg (35.0-45.0); BG PH 7.479 (7.350-7.450); BG PO2 61.9 mmHg (75.0-100.0); BG SAMPLE SITE RIGHT RADIAL; BG TOTAL HEMOGLOBIN 9.2 g/dL (12.0-18.0); BG VENT MODE VENT - AC
[2021-07-29 10:48] LABS: PLATELET ESTIMATE NORMAL
[2021-07-29] MEDS: CEFEPIME 1,000 MG in DEXTROSE 5% WATER 50 ML IV SCH ×2 (14:00→17:43)
[2021-07-29] MEDS: NOREPINEPHRINE 32 MG in DEXT 5% WATER 218 ML IV PRN (14:35)
[2021-07-29] MEDS ORDERED: VANCOMYCIN 1 G PREMIX 200 ML IV NR (19:00)
[2021-07-30] VITALS (99 sets, daily range): BP systolic 61–189; BP diastolic 27–110
[2021-07-30] MEDS: METOCLOPRAMIDE HCL 10MG/2ML VIAL IM SCH ×4 (00:38→17:33)
[2021-07-30] MEDS: NOREPINEPHRINE 32 MG in DEXT 5% WATER 218 ML IV PRN ×2 (00:40→12:09)
[2021-07-30] MEDS: FENTANYL CITRATE 2,500 MCG in SODIUM CHLORIDE 0.9% 200 ML IV PRN (06:40)
[2021-07-30 06:52] LABS: HEMOGLOBIN. 8.6 g/dL (12.0-16.0); MEAN CORPUSCULAR VOLUME 114.2 fL (81.0-99.0); MEAN PLATELET VOLUME 9.2 fl (7.4-10.4); PLATELET 127 x1000/uL (130-400); RED BLOOD CELL COUNT 2.28 mill/uL (4.2-5.4); RED CELL DISTRIBUTION WIDTH 14.1 % (11.6-14.6)
[2021-07-30] MEDS: IPRATROPIUM/ALBUTEROL 0.5-3(2.5)MG/3ML NEB HHN SCH ×2 (08:10→13:46)
[2021-07-30] MEDS: PANTOPRAZOLE SODIUM 40 MG/VIAL IV SCH (08:12)
[2021-07-30] MEDS: BISACODYL 10MG SUPP PR SCH (08:12)
[2021-07-30 08:48] LABS: BG BASE EXCESS 1.6 mmol/L (-2.0-2.0); BG CARBOXYHEMOGLOBIN 0.3 % (0.5-1.5); BG DEOXYHEMOGLOBIN 4.5 % (0.0-5.0); BG FRACTION INSPIRED OXYGEN 70; BG HCO3 ACT 26.6 mmol/L (22.0-26.0); BG METHEMOGLOBIN 0.4 % (0.0-1.5); BG OXYGEN SATURATION 95.5 % (92.0-98.5); BG OXYHEMOGLOBIN 94.8 % (94.0-97.0); BG PCO2 43.9 mmHg (35.0-45.0); BG PH 7.401 (7.350-7.450); BG PO2 83.3 mmHg (75.0-100.0); BG SAMPLE SITE RIGHT BRACHIAL; BG TOTAL HEMOGLOBIN 9.9 g/dL (12.0-18.0); BG VENT MODE VENT - AC
[2021-07-30] MEDS: CEFEPIME 1,000 MG in DEXTROSE 5% WATER 50 ML IV SCH (11:35)
[2021-07-30 14:03] LABS: PLATELET ESTIMATE SLIGHTLY DECREASED
[2021-07-31] VITALS (99 sets, daily range): BP systolic 58–175; BP diastolic 23–126
[2021-07-31] MEDS: IPRATROPIUM/ALBUTEROL 0.5-3(2.5)MG/3ML NEB HHN SCH ×3 (00:45→14:21)
[2021-07-31] MEDS: METOCLOPRAMIDE HCL 10MG/2ML VIAL IM SCH ×4 (02:20→17:28)
[2021-07-31] MEDS: FENTANYL CITRATE/PF 2,500 MCG in SODIUM CHLORIDE 0.9% 200 ML IV PRN ×2 (02:22→22:11)
[2021-07-31] MEDS: NOREPINEPHRINE 32 MG in DEXT 5% WATER 218 ML IV PRN ×3 (04:04→22:09)
[2021-07-31 05:24] LABS: HEMOGLOBIN. 8.9 g/dL (12.0-16.0); MEAN CORPUSCULAR HEMOGLOBIN 37.4 pg (28.0-32.0); MEAN CORPUSCULAR VOLUME 113.5 fL (81.0-99.0); MEAN PLATELET VOLUME 9.2 fl (7.4-10.4); PLATELET 118 x1000/uL (130-400); RED BLOOD CELL COUNT 2.38 mill/uL (4.2-5.4); RED CELL DISTRIBUTION WIDTH 14.3 % (11.6-14.6)
[2021-07-31] MEDS: BISACODYL 10MG SUPP PR SCH (08:13)
[2021-07-31] MEDS: PANTOPRAZOLE SODIUM 40 MG/VIAL IV SCH (08:13)
[2021-07-31 10:19] LABS: PLATELET ESTIMATE SLIGHTLY DECREASED
[2021-07-31 11:27] LABS: BG BASE EXCESS -4.7 mmol/L (-2.0-2.0); BG CARBOXYHEMOGLOBIN 0.3 % (0.5-1.5); BG FRACTION INSPIRED OXYGEN 50; BG METHEMOGLOBIN 0.6 % (0.0-1.5); BG OXYGEN SATURATION 83.9 % (92.0-98.5); BG OXYHEMOGLOBIN 83.1 % (94.0-97.0); BG PCO2 41.3 mmHg (35.0-45.0); BG PH 7.325 (7.350-7.450); BG PO2 54.4 mmHg (75.0-100.0); BG SAMPLE SITE RIGHT RADIAL; BG TOTAL HEMOGLOBIN 10.5 g/dL (12.0-18.0); BG VENT MODE VENT - AC
[2021-07-31] MEDS: CEFEPIME 1,000 MG in DEXTROSE 5% WATER 50 ML IV SCH ×2 (14:00→15:14)
[2021-07-31 16:49] LABS: BG BASE EXCESS -7.1 mmol/L (-2.0-2.0); BG CARBOXYHEMOGLOBIN 0.3 % (0.5-1.5); BG DEOXYHEMOGLOBIN 4.3 % (0.0-5.0); BG FRACTION INSPIRED OXYGEN 35; BG HCO3 ACT 17.6 mmol/L (22.0-26.0); BG METHEMOGLOBIN 0.3 % (0.0-1.5); BG OXYGEN SATURATION 95.7 % (92.0-98.5); BG OXYHEMOGLOBIN 95.1 % (94.0-97.0); BG PCO2 32.7 mmHg (35.0-45.0); BG PO2 88.1 mmHg (75.0-100.0); BG SAMPLE SITE LEFT RADIAL; BG TOTAL HEMOGLOBIN 10.1 g/dL (12.0-18.0); BG VENT MODE VENT - AC
[2021-08-01] VITALS (101 sets, daily range): BP systolic 59–155; BP diastolic 18–103
[2021-08-01] MEDS: METOCLOPRAMIDE HCL 10MG/2ML VIAL IM SCH ×4 (00:43→17:33)
[2021-08-01] MEDS: IPRATROPIUM/ALBUTEROL 0.5-3(2.5)MG/3ML NEB HHN SCH ×4 (04:19→20:41)
[2021-08-01] MEDS: PHENYLEPHRINE 100 MG in DEXT 5% WATER 240 ML IV PRN ×3 (06:05→21:35)
[2021-08-01 06:13] LABS: HEMATOCRIT. 24.9 % (36.0-48.0); HEMOGLOBIN. 8.2 g/dL (12.0-16.0); MEAN CORPUSCULAR HEMOGLOBIN 37.8 pg (28.0-32.0); MEAN CORPUSCULAR VOLUME 115.1 fL (81.0-99.0); MEAN PLATELET VOLUME 8.8 fl (7.4-10.4); PLATELET 96 x1000/uL (130-400); RED BLOOD CELL COUNT 2.16 mill/uL (4.2-5.4); RED CELL DISTRIBUTION WIDTH 14.1 % (11.6-14.6)
[2021-08-01 08:36] LABS: PLATELET ESTIMATE SLIGHTLY DECREASED
[2021-08-01] MEDS: NOREPINEPHRINE 32 MG in DEXT 5% WATER 218 ML IV PRN ×2 (08:53→19:11)
[2021-08-01 09:29] LABS: BG BASE EXCESS -11.3 mmol/L (-2.0-2.0); BG CARBOXYHEMOGLOBIN 0.2 % (0.5-1.5); BG DEOXYHEMOGLOBIN 32.5 % (0.0-5.0); BG FRACTION INSPIRED OXYGEN 65; BG HCO3 ACT 14.5 mmol/L (22.0-26.0); BG METHEMOGLOBIN 0.6 % (0.0-1.5); BG OXYGEN SATURATION 67.2 % (92.0-98.5); BG OXYHEMOGLOBIN 66.7 % (94.0-97.0); BG PCO2 32.3 mmHg (35.0-45.0); BG PO2 43.8 mmHg (75.0-100.0); BG SAMPLE SITE RIGHT BRACHIAL; BG TOTAL HEMOGLOBIN 8.8 g/dL (12.0-18.0); BG VENT MODE VENT - AC
[2021-08-01] MEDS: BISACODYL 10MG SUPP PR SCH (09:55)
[2021-08-01] MEDS: PANTOPRAZOLE SODIUM 40 MG/VIAL IV SCH (09:55)
[2021-08-01] MEDS ORDERED: SODIUM BICARBONATE 8.4% 1 MEQ/ML 50ML SYR IV NR ×2 (10:45→14:45)
[2021-08-01] MEDS ORDERED: SODIUM BICARBONATE 8.4% 1 MEQ/ML 50ML SYR IV SCH (13:00)
[2021-08-01] MEDS: DEXTROSE 50% WATER 50ML SYRINGE IV PRN ×2 (13:14→18:50)
[2021-08-01] MEDS: DEXT 5%/0.45% NACL 1000ML 1,000 ML IV SCH ×2 (13:15→23:07)
[2021-08-01 14:35] LABS: BG BASE EXCESS -16.9 mmol/L (-2.0-2.0); BG CARBOXYHEMOGLOBIN 0.3 % (0.5-1.5); BG DEOXYHEMOGLOBIN 3.1 % (0.0-5.0); BG FRACTION INSPIRED OXYGEN 65; BG HCO3 ACT 9.6 mmol/L (22.0-26.0); BG METHEMOGLOBIN 0.2 % (0.0-1.5); BG OXYGEN SATURATION 96.9 % (92.0-98.5); BG OXYHEMOGLOBIN 96.4 % (94.0-97.0); BG PCO2 25.2 mmHg (35.0-45.0); BG PH 7.198 (7.350-7.450); BG SAMPLE SITE RIGHT RADIAL; BG TOTAL HEMOGLOBIN 8.5 g/dL (12.0-18.0); BG VENT MODE VENT - AC
[2021-08-01 15:37] LABS: INR 3.8; PROTHROMBIN TIME 36.4 sec (9.6-11.0)
[2021-08-01 16:01] LABS: PARTIAL THROMBOPLASTIN TIME 93.6 sec (23.4-31.0)
[2021-08-01] MEDS: SODIUM BICARBONATE 150 MEQ in DEXTROSE 5% WATER 1,000 ML IV SCH (16:07)
[2021-08-01] MEDS ORDERED: LIDOCAINE HCL 1% 20ML VIAL (Pyxis) INJ ONE (17:33)
[2021-08-01] MEDS ORDERED: BUPIVACAINE HCL/PF 0.5% (5MG/ML) 10ML ONE (17:33)
[2021-08-01] MEDS ORDERED: POLYMYXIN B SULFATE 500000 UNITS/VIAL ONE (17:33)
[2021-08-01] MEDS ORDERED: DOPAMINE 800MG PREMIX (DOUBLE) 250 ML IV STA (21:03)
[2021-08-01] MEDS ORDERED: EPINEPHRINE 5 MG in SODIUM CHLORIDE 0.9% 245 ML IV PRN (21:15)
[2021-08-01] MEDS ORDERED: DOPAMINE 800MG PREMIX (DOUBLE) 250 ML IV ONE (21:18)
[2021-08-01] MEDS ORDERED: EPINEPHRINE 0.1MG/ML (1:10,000) 10ML SYR IV NR (21:22)
[2021-08-01 23:58] LABS: BG BASE EXCESS -27.4 mmol/L (-2.0-2.0); BG CARBOXYHEMOGLOBIN 0.3 % (0.5-1.5); BG DEOXYHEMOGLOBIN 0.6 % (0.0-5.0); BG FRACTION INSPIRED OXYGEN 100; BG HCO3 ACT 3.5 mmol/L (22.0-26.0); BG METHEMOGLOBIN 0.2 % (0.0-1.5); BG OXYGEN SATURATION 99.4 % (92.0-98.5); BG OXYHEMOGLOBIN 98.9 % (94.0-97.0); BG PCO2 17.5 mmHg (35.0-45.0); BG PH 6.916 (7.350-7.450); BG PO2 293.6 mmHg (75.0-100.0); BG TOTAL HEMOGLOBIN 9.3 g/dL (12.0-18.0); BG TOTAL RESPIRATORY RATE 30 b/min; BG VENT MODE VENT - AC
[2021-08-02] VITALS (19 sets, daily range): BP systolic 44–140; BP diastolic 26–93
[2021-08-02] MEDS: METOCLOPRAMIDE HCL 10MG/2ML VIAL IM SCH ×2 (01:46→06:00)
[2021-08-02] MEDS: IPRATROPIUM/ALBUTEROL 0.5-3(2.5)MG/3ML NEB HHN SCH (02:41)
[2021-08-02] MEDS: SODIUM BICARBONATE 150 MEQ in DEXTROSE 5% WATER 1,000 ML IV SCH (03:33)
== END 2021-08-02 08:51 | DRG 870 ==
LOC: ER 06:11 → CVICU 13:21 → ENRESERV 13:40 → EDBEDREQTM 13:48 → EDBEDREQSVC 13:48 → ENRESERV 14:40 → CANBEDREQ 18:40
PROVIDERS: ADMIT Internal Medicine; ATTEND Internal Medicine
PROC: 5A1955Z Respiratory Ventilation, Greater than 96 Consecutive Hours (ICD-10-PCS; principal; 2021-07-25)
PROC: 0W9G3ZZ Drainage of Peritoneal Cavity, Percutaneous Approach (ICD-10-PCS; 2021-07-25)
PROC: 02HV33Z Insertion of Infusion Device into Superior Vena Cava, Percutaneous Approach (ICD-10-PCS; 2021-07-25)
PROC: B548ZZA Ultrasonography of Superior Vena Cava, Guidance (ICD-10-PCS; 2021-07-25)
PROC: 5A1D70Z Performance of Urinary Filtration, Intermittent, Less than 6 Hours Per Day (ICD-10-PCS; 2021-07-25)
PROC: 0BH17EZ Insertion of Endotracheal Airway into Trachea, Via Natural or Artificial Opening (ICD-10-PCS; 2021-07-25)
PROC: 5A1D70Z Performance of Urinary Filtration, Intermittent, Less than 6 Hours Per Day (ICD-10-PCS; 2021-07-27)
PROC: 5A1D70Z Performance of Urinary Filtration, Intermittent, Less than 6 Hours Per Day (ICD-10-PCS; 2021-07-29)
PROC: 5A1D70Z Performance of Urinary Filtration, Intermittent, Less than 6 Hours Per Day (ICD-10-PCS; 2021-07-31)
PROC: 30233N1 Transfusion of Nonautologous Red Blood Cells into Peripheral Vein, Percutaneous Approach (ICD-10-PCS; 2021-08-01)
PROC: 30233K1 Transfusion of Nonautologous Frozen Plasma into Peripheral Vein, Percutaneous Approach (ICD-10-PCS; 2021-08-01)
DX: A41.59 Other Gram-negative sepsis (principal); E43 Unspecified severe protein-calorie malnutrition; J96.00 Acute respiratory failure, unspecified whether with hypoxia or hypercapnia; G93.41 Metabolic encephalopathy; R65.21 Severe sepsis with septic shock; K65.2 Spontaneous bacterial peritonitis; K85.20 Alcohol induced acute pancreatitis without necrosis or infection; N17.0 Acute kidney failure with tubular necrosis; E87.1 Hypo-osmolality and hyponatremia; N39.0 Urinary tract infection, site not specified; D68.9 Coagulation defect, unspecified; E87.2 Acidosis; K56.609 Unspecified intestinal obstruction, unspecified as to partial versus complete obstruction; K76.6 Portal hypertension; Z66 Do not resuscitate; K70.31 Alcoholic cirrhosis of liver with ascites; D53.9 Nutritional anemia, unspecified; J44.9 Chronic obstructive pulmonary disease, unspecified; I46.9 Cardiac arrest, cause unspecified; E66.9 Obesity, unspecified; E87.5 Hyperkalemia; F10.10 Alcohol abuse, uncomplicated; F17.200 Nicotine dependence, unspecified, uncomplicated; K72.90 Hepatic failure, unspecified without coma; R16.0 Hepatomegaly, not elsewhere classified; Z20.822 Contact with and (suspected) exposure to COVID-19; Y90.9 Presence of alcohol in blood, level not specified; I10 Essential (primary) hypertension; K82.8 Other specified diseases of gallbladder; Z78.1 Physical restraint status; Z82.49 Family history of ischemic heart disease and other diseases of the circulatory system; Z68.32 Body mass index [BMI] 32.0-32.9, adult
CPT/HCPCS: 31500; 36415; 36600; 49083; 71045; 74018; 74176; 76700; 76937; 80048; 80053; 80076; 80202; 80305; 81003; 82040; 82105; 82140; 82248; 82375; 82378; 82805; 82962; 83605; 83735; 84100; 84145; 84478; 85025; 86705; 86709; 86803; 86850; 86900; 86920; 86927; 87070; 87075; 87106; 87186; 87340; 87426; 93005; 94002; 94003; 94640; 99291; C1752; C9113; J0692; J1265; J1815; J2250; J2270; J2370; J2405; J2704; J2765; J3010; J3370; J3490; J7040; J7050; J7060; J7070; P9016; P9017; P9047; Q9963; A4315